=== PATIENT | female | born 1955 ===

== ENCOUNTER 2023-04-12 16:40 | Emergency (ER) | payer SELFPAY ==
[~2023-04-12] VITALS: Ht 149.9 cm; Wt 70.8 kg
[2023-04-12] MEDS ORDERED: METF500 PO (17:50)
[2023-04-12] MEDS ORDERED: EUTHYROX50 MCG PO (17:51)
[2023-04-12] MEDS ORDERED: SITA25T2 PO (17:51)
[2023-04-12] MEDS ORDERED: Lisinopril2.5 MG PO (17:51)
[2023-04-12] MEDS ORDERED: GLIP2.5ER PO (17:51)
[2023-04-12 18:15] VITALS: BP 162/87
== END 2023-04-12 20:12 | disposition home or self-care (01) ==
LOC: ER 16:40
DX: S00.03XA Contusion of scalp, initial encounter (principal); M54.50 Low back pain, unspecified; M54.2 Cervicalgia; W19.XXXA Unspecified fall, initial encounter; E11.9 Type 2 diabetes mellitus without complications; E03.9 Hypothyroidism, unspecified; E78.00 Pure hypercholesterolemia, unspecified
CPT/HCPCS: 70450; 70498; 72100; A9270; J2405; Q9967